=== PATIENT | male | born 1995 ===

== ENCOUNTER 2018-08-06 12:00 | Emergency (ER) | payer BC ==
[2018-08-06 13:15] VITALS: BP 107/66
--- NOTE | 2018-08-06 14:04 | ED ---
Upper Extremity Pain - HPI Summary HPI Summary: 23 yr old male with right thumb FB. The patient states that on Monday, 08/03, he was grabbing a tree branch in his yard, and he felt a small piece stick in his thumb. The patient states he forgot about it, and then this morning he felt that he had a FB in the thumb. He states he has been digging at it with tweezers at home. He has no redness or streaking to the thumb or arm. His tetanus shot is up to date. - History of Current Complaint Chief Complaint: UCSkin Stated Complaint: DEEP SPLINTER IN THUMB Time Seen by Provider: 08/06/18 13:56 - Allergies/Home Medications Allergies/Adverse Reactions: Allergies Allergy/AdvReac Type Severity Reaction Status Date / Time No Known Allergies Allergy Verified 08/06/18 13:10 Home Medications: Home Medications NK [No Home Medications Reported] 08/06/18 [History Confirmed 08/06/18] PMH/Surg Hx/FS Hx/Imm Hx Previously Healthy: Yes - Surgical History Surgery Procedure, Year, and Place: TONCILLECTOMY Infectious Disease History: No Infectious Disease History: Denies: Traveled Outside the [place] in Last 30 Days - Family History Known Family History: Positive: None - Social History Occupation: Employed Full-time Lives: With Family Alcohol Use: Occasionally Substance Use Type: Reports: None Smoking Status (MU): Never Smoked Tobacco Review of Systems Constitutional: Negative Positive: Other - FB right thumb All Other Systems Reviewed And Are Negative: Yes Physical Exam Triage Information Reviewed: Yes Vital Signs On Initial Exam: Initial Vitals Temp Pulse Resp BP Pulse Ox 97.9 F 76 15 107/66 100 08/06/18 13:11 08/06/18 13:11 08/06/18 13:11 08/06/18 13:11 08/06/18 13:11 Vital Signs Reviewed: Yes Appearance: Positive: Well-Appearing, No Pain Distress Skin: Positive: Warm, Skin Color Reflects Adequate Perfusion Head/Face: Positive: Normal Head/Face Inspection Eyes: Positive: EOMI, TETE ENT: Positive: Normal ENT inspection Neck: Positive: Nontender Respiratory/Lung Sounds: Positive: Clear to Auscultation, Breath Sounds Present Cardiovascular: Positive: Pulses are Symmetrical in both Upper and Lower Extremities Abdomen Description: Negative: Distended Musculoskeletal: Positive: Other - right thumb without redness, swelling. He has a small 2 mm scab area without any FB palpable under the skin. Neurological: Positive: Sensory/Motor Intact, Alert, Oriented to Person Place, Time, CN Intact II-III, Speech Normal Diagnostics - Vital Signs Vital Signs Temp Pulse Resp BP Pulse Ox 08/06/18 13:11 97.9 F 76 15 107/66 100 - Laboratory Lab Statement: Any lab studies that have been ordered have been reviewed, and results considered in the medical decision making process. Course/Dx - Course Course Of Treatment: 23 yr old male who states that he had a (small) not large splinter in his thumb. he ahs been digging at it. No FB seen or palpated now. No infection noted. Plan DC home and FU with PMD, Ortho hand referral as well. - Diagnoses Provider Diagnoses: Foreign body of thumb, right Discharge - Sign-Out/Discharge Documenting (check all that apply): Patient Departure All imaging exams completed and their final reports reviewed: No Studies - Discharge Plan Condition: Good Disposition: HOME Patient Education Materials: Soft Tissue Foreign Body (ED) Referrals: Pedro Salgado MD [Primary Care Provider] - Joelle Hinojosa MD [Medical Doctor] - 2 Days Maged Gilliam MD [Medical Doctor] - 2 Days - Billing Disposition and Condition Condition: GOOD Disposition: Home
== END 2018-08-06 14:08 | disposition home or self-care (01) ==
LOC: UCCORT 12:00
DX: S60.351A Superficial foreign body of right thumb, initial encounter (principal); X58.XXXA Exposure to other specified factors, initial encounter; Y92.9 Unspecified place or not applicable
CPT/HCPCS: 99211; G0463